=== PATIENT | male | born 1990 | race Caucasian/White ===

== ENCOUNTER 2022-06-17 20:48 | Emergency (ER) | payer OTHER ==
[2022-06-17 20:57] VITALS: BMI 27.3
[2022-06-17 22:18] LABS: BASO % 0.7 % (0-2.0); EOS % 3.9 % (0-4.5); HEMATOCRIT 41.1 % (35.4-49); HEMOGLOBIN 13.9 GM/dL (11.7-16.9); LYMPH % 38.3 % (8-40); MCH 31.9 pg (25.7-33.7); MCHC 33.8 g/dl (32.0-35.9); MEAN CELL VOLUME 94.6 fl (80-96); MEAN PLT VOLUME 7.4 fl (7.5-11.1); MONO % 8.5 % (3.8-10.2); NEUT % 48.6 % (42.8-82.8); PLATELET COUNT 286 10^3/uL (134-434); RBC 4.35 M/mm3 (4.00-5.60); RDW 12.2 % (11.9-15.9); WHITE BLOOD COUNT 8.7 K/mm3 (4.0-10.0)
[2022-06-17 22:28] LABS: INR 1.01 (0.83-1.09); PROTHROMBIN TIME (PATIENT) 11.6 SEC (9.7-13.0)
[2022-06-17 22:31] LABS: ACTIVATED PTT 32.3 SECONDS (25.2-36.5)
[2022-06-17 22:48] LABS: BLOOD UREA NITROGEN 19.8 mg/dL (7-18); CALCIUM 9.2 mg/dL (8.5-10.1)
[2022-06-17 22:51] LABS: CREATININE 1.1 mg/dL (0.55-1.3)
[2022-06-17 22:53] LABS: TOT PROT 7.3 g/dl (6.4-8.2)
[2022-06-17 23:10] LABS: BILIRUBIN,TOTAL 0.3 mg/dL (0.2-1)
[2022-06-18 01:15] VITALS: BP 126/83; PULSE 65; RESP 20; TEMP 97.5
== END 2022-06-18 01:46 | disposition home or self-care (01) ==
LOC: JER 20:48
DX: R04.2 Hemoptysis (principal)
CPT/HCPCS: 36415; 71045-TC-FY; 71275-TC; 80053; 85025; 85610; 85730; 86850; 86900; 86901; 93005; 93010; 99285-25; Q9967